=== PATIENT | female | born 1980 | race Caucasian/White ===

== ENCOUNTER 2021-01-25 15:22 | Emergency (ER) | payer OTHER, SELFPAY ==
[2021-01-25 15:29] VITALS: BP 132/82; PULSE 88; RESP 18; TEMP 36.8; O2SAT 99; BMI 25.4
--- NOTE | 2021-01-25 15:35 | DI.RAD.S_ITS ---
PROCEDURE: XR FINGER LT MIN 2V INDICATIONS: INJURY AND SWELLING TECHNIQUE: AP hand, 2 views of the 3rd finger(s) acquired. COMPARISON: None. FINDINGS: Bones: No fractures or dislocations. No suspicious bony lesions. Soft tissues: No suspicious soft tissue calcifications. IMPRESSION: No acute finding. Dictated by: Umair Augustin M.D. on 01/25/2021 at 16:38 Approved by: Umair Augustin M.D. on 01/25/2021 at 16:39
--- NOTE | 2021-01-25 17:13 | ED.GENADULT ---
HPI - General Adult General Chief complaint: Extremity Injury, Upper Stated complaint: lt middle finger injury Time Seen by Provider: 01/25/21 17:09 Source: patient Mode of arrival: Ambulatory Limitations: no limitations History of Present Illness HPI narrative: Patient is a 40-year-old female here for evaluation of left middle finger injury. She states that she was out walking her dog and had the leash wrapped around this finger when the dog lunged at another dog causing a tightening in a pulling of this finger. States that she is having discomfort and tingling. She did sustain a small abrasion on the back of this finger. Related Data Allergies Allergy/AdvReac Type Severity Reaction Status Date / Time pseudoephedrine Allergy Verified 01/25/21 15:29 Review of Systems Constitutional Constitutional: Reports system reviewed and no additional complaints, except as documented Musculoskeletal Comments: Left middle finger pain Integumentary/Breasts Comments: Abrasion on the back of the middle finger Hematologic/Lymphatic On Anticoagulants: No Patient History Medical History Healthy adult Social History Smoking Status: Never smoker Smoking Status: Never smoker Substance Use Type: does not use Exam Initial Vital Signs Initial Vital Signs: Vital Signs Temperature 98.2 F 01/25/21 15:29 Pulse Rate 88 01/25/21 15:29 Respiratory Rate 18 01/25/21 15:29 Blood Pressure 132/82 01/25/21 15:29 Pulse Oximetry 99 01/25/21 15:29 Const General: cooperative and comfortable Limitations: mental status not altered [facility] Head: normal to inspection and normocephalic Cardio Pulses: radial pulses present on the left Skin Other: Superficial abrasion over the dorsum of the left middle finger over the PIP joint. Neuro Cognition: normal cognition Speech: speech normal Sensory Exam: no sensory deficits noted Extrem Other: Patient does have limited range of motion of the PIP and the IP joint secondary to discomfort Procedures Orthopedic Splinting/Casting Injury #1: Side: left Upper Extremity Injury Location: finger Upper Extremity Immobilizer: aluminum form splint Post splinting neuro exam: no change Post splinting vascular exam: no change Placed by: Nursing Course Orders Ordered: ED Orders 01/25/21 15:35 XR finger LT min 2V Stat Vital Signs Vital signs: Vital Signs - 8 hr 01/25/21 15:29 01/25/21 17:25 Temperature 98.2 F Pulse Rate 88 80 Respiratory Rate 18 16 Blood Pressure 132/82 124/72 Pulse Oximetry 99 96 Medical Decision Making Imaging Data Extremity x-ray #1: Radiologist's Impression: [address] [id number] ReportSigned Patient: Melyssa Palacios LMR#: [id number]: 1980Acct:[id number]/Sex: 40 / FDate of Service: 01/25/21Loc: EDAccession Number: [id number] Procedure: XR finger LT min 2V Ordering Provider: Yulissa Munoz D.O. PROCEDURE: XR FINGER LT MIN 2V INDICATIONS: INJURY AND SWELLING TECHNIQUE: AP hand, 2 views of the 3rd finger(s) acquired. COMPARISON: None. FINDINGS: Bones: No fractures or dislocations. No suspicious bony lesions. Soft tissues: No suspicious soft tissue calcifications. IMPRESSION: No acute finding. Dictated by: Umair Augustin M.D. on 01/25/2021 at 16:38 Approved by: Umair Augustin M.D. on 01/25/2021 at 16:39 MDM Narrative Medical decision making narrative: No fractures noted on the x-ray. The abrasion needs no intervention here in the ER. Does suspect that the injuries are more of a crush injury because the leash. Neurovascularly intact. Will place an aluminum splint for her comfort. She is given return precautions. She expressed understanding agreement. Discharge Plan Departure Patient Disposition: Home Clinical Impression: Crushing injury of left middle finger Instructions: DI for Finger Sprain Activity Restrictions/Additional Instructions: The aluminum splint is for your comfort. You can take it off to shower and wash your hands. I do recommend you keep your hand elevated and keep ice over the area. Return to the emergency department for any new or worsening symptoms
[2021-01-25 17:25] VITALS: BP 124/72; PULSE 80; RESP 16; O2SAT 96
== END 2021-01-25 17:34 | disposition home or self-care (01) ==
PROVIDERS: Emergency Provider Emergency Medicine
DX: S67.193A Crushing injury of left middle finger, initial encounter (principal); X58.XXXA Exposure to other specified factors, initial encounter
CPT/HCPCS: 29130; 73140; 99281; 99283